=== PATIENT | male | born 1975 | race Caucasian/White ===

== ENCOUNTER 2025-01-29 19:52 | Emergency (ER) | payer OTHER | END 2025-01-29 23:36 | disposition home or self-care (01) | LOC: CSHERS 19:52 | DX: F10.10 Alcohol abuse, uncomplicated (principal); E11.9 Type 2 diabetes mellitus without complications; I10 Essential (primary) hypertension; F17.210 Nicotine dependence, cigarettes, uncomplicated; Z79.899 Other long term (current) drug therapy | CPT/HCPCS: 80307; 96374; J2060 ==